=== PATIENT | male | born 2000 | race Two or more races ===

== ENCOUNTER 2022-10-28 21:55 | Emergency (ER) | payer OTHER ==
[~2022-10-28] VITALS: Ht 182.9 cm; Wt 99.3 kg
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
[2022-10-28 22:04] VITALS: BP 123/60
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
--- NOTE | 2022-10-28 22:11 | NUR ---
PT TAKEN TO BED 4
--- NOTE | 2022-10-28 23:07 | NUR ---
PT TAKEN TO CT
--- NOTE | 2022-10-28 23:35 | NUR ---
PT RETURN FROM CT
[2022-10-28] MEDS ORDERED: KETOROLAC 30 MG/ML VIAL IM ONE (23:50)
[2022-10-28] MEDS ORDERED: ACETAMINOPHEN EXTRA STRENGTH 500 MG TAB PO ONE (23:50)
--- NOTE | 2022-10-28 23:53 | NUR ---
pt refused the t dap. he said he had it 5 years ago
--- NOTE | 2022-10-28 23:55 | NUR ---
PT REFUSED WOUND CARE
[2022-10-29] MEDS ORDERED: CYCL-711 PO (01:00)
[2022-10-29] MEDS ORDERED: IBUP-2213 PO (01:00)
[2022-10-29] MEDS ORDERED: DICL100G5 TP (01:00)
[2022-10-29 01:15] VITALS: BP 120/60
--- NOTE | 2022-10-29 01:37 | NUR ---
Patient discharged with v/s stable. Written and verbal after care instructions given and explained. Patient alert, oriented and verbalized understanding of instructions. Ambulatory with steady gait. All questions addressed prior to discharge. ID band removed. Patient advised to follow up with PMD. Rx of flexeril, diclofenac and ibuprofen given. Patient educated on indication of medication including possible reaction and side effects. Opportunity to ask questions provided and answered. pt left with his belongings.
== END 2022-10-29 01:37 | disposition home or self-care (01) ==
LOC: MED 21:55
DX: S16.1XXA Strain of muscle, fascia and tendon at neck level, initial encounter (principal); S00.81XA Abrasion of other part of head, initial encounter; M54.9 Dorsalgia, unspecified; V29.99XA Rider (driver) (passenger) of other motorcycle injured in unspecified traffic accident, initial encounter; Y93.89 Activity, other specified; Y92.410 Unspecified street and highway as the place of occurrence of the external cause; Y99.8 Other external cause status
CPT/HCPCS: 70450; 71045; 72072; 72100; 72125; 96374; 99285; J1885; 90715